=== PATIENT | female | born 1980 | race Hispanic/Latino ===

== ENCOUNTER → 2022-06-28 | Day surgery (SDC) | payer MEDICARE ==
[2022-06-26 10:24] LABS: ANION GAP 13.5 mmol/L (8-16); CALCIUM 9.1 mg/dL (8.4-10.2); CREATININE, SERUM 0.73 mg/dL (0.57-1.11); POTASSIUM 3.5 mmol/L (3.5-5.1)
[~2022-06-28] MED LIST: ALBUTEROL0.63 MG/3 NEB; BUPIVACAINE HCL 0.5% INJ 30 ML VIAL INJ ONE; BUPROPION XL150 MG PO; BUSPIRONE HCL10 MG PO; CEFAZOLIN SODIUM 2 GM ONE; DEXAMETHASONE SOD PHOS INJ 4 MG/ML SDV ONE; DIPHENHYDRAMINE HCL INJ 50 MG/ML VIAL ONE; EPINEPHRINE HCL 1:1000 1ML 1 MG/ML AMP ONE; FENTANYL CITRATE/PF 100MCG/2 ML INJ ONE; HYDROCODON-ACE1 EAC9 PO; HYDROXYZINE HCL50 MG PO; LACTATED RINGER'S 1,000 ML ONE; LIDOCAINE HCL 2% LOCAL INJ 5 ML SDV VIAL INJ ONE; LIPITOR10 MG PO; LOSARTAN-HCTZ1 EAC1 PO; LYRICA50 MG PO; METOCLOPRAMIDE HCL 10 MG/2ML VIAL ONE; MIDAZOLAM HCL 2 MG/2 ML VIAL ONE; NURTEC ODT75 MG PO; ONDANSETRON HCL INJ 2MG/ML 2ML 2 MG/ML VIAL ONE; ONDANSETRON ODT4 MG PO; PAXLOVID 150-11 EACH PO; POVIDONE IODINE 0.05% 0.05 % ML PO ONE; PROMETHAZINE HC25 M1 PO; PROPOFOL IV EMULSION 10 MG/ML 20 ML VIAL ONE; SUCCINYLCHOLINE CHLORIDE 20 MG/ML 10ML VIAL ONE; TRAZODONE HCL100 MG PO
[2022-06-28 13:20] VITALS: BP 144/85; PULSE 66; RESP 16; O2SAT 95
== END | disposition home or self-care (01) ==
LOC: OR 09:09
PROVIDERS: ATTEND Orthopaedic Surgery
DX: S52.571A Other intraarticular fracture of lower end of right radius, initial encounter for closed fracture (principal); G56.00 Carpal tunnel syndrome, unspecified upper limb; G47.33 Obstructive sleep apnea (adult) (pediatric); I10 Essential (primary) hypertension; K21.9 Gastro-esophageal reflux disease without esophagitis; K44.9 Diaphragmatic hernia without obstruction or gangrene; R06.02 Shortness of breath; E66.01 Morbid (severe) obesity due to excess calories; F41.9 Anxiety disorder, unspecified; F32.A Depression, unspecified; W18.39XA Other fall on same level, initial encounter; Z01.810 Encounter for preprocedural cardiovascular examination; Z01.812 Encounter for preprocedural laboratory examination; Z79.899 Other long term (current) drug therapy
CPT/HCPCS: 25609; 36415; 64721; 80048; 81025; 93005; C1713 ×6; C1769; J0171; J0330; J1100; J1200; J2001; J2250; J2405; J2704; J2765; J3010; J7121